=== PATIENT | female | born 1985 | race Two or more races ===

== ENCOUNTER → 2016-05-25 | Outpatient (CLI) | payer OTHER ==
[2016-05-25 09:27] LABS: MEAN CORPUSCULAR HEMOGLOBIN 30.4 pg (27.0-33.0); RED CELL DISTRIBUTION WIDTH 12.1 % (11.5-14.5); WHITE BLOOD COUNT 3.6 K/mm3 (4.0-10.0)
[2016-05-25 09:59] LABS: ALBUMIN 3.8 GM/DL (3.2-5.2); ALBUMIN/GLOBULIN RATIO 0.88 (1.00-1.93); ALKALINE PHOSPHATASE 73 U/L (45-117); ALT/SGPT 41 U/L (12-78); ANION GAP 7 MEQ/L (8-16); AST/SGOT 38 U/L (15-37); BILIRUBIN,TOTAL 0.7 MG/DL (0.2-1.0); BLOOD UREA NITROGEN 16 MG/DL (7-18); CALCIUM LEVEL 8.9 MG/DL (8.5-10.1); CARBON DIOXIDE LEVEL 29 MEQ/L (21-32); CHLORIDE LEVEL 103 MEQ/L (98-107); CHOLESTEROL LEVEL 163 MG/DL (<200); CREATININE FOR GFR 0.79 MG/DL (0.55-1.02); GLOMERULAR FILTRATION RATE > 60.0 (>60); GLUCOSE, FASTING 77 MG/DL (70-105); MAGNESIUM LEVEL 2.1 MG/DL (1.8-2.4); POTASSIUM SERUM 4.5 MEQ/L (3.5-5.1); SODIUM LEVEL 139 MEQ/L (136-145); TOTAL PROTEIN 8.1 GM/DL (6.4-8.2); TRIGLYCERIDES LEVEL 55 MG/DL (<150)
== END ==
LOC: M WUC 08:15
PROVIDERS: ATTEND Physician Assistant
DX: Z00.00 Encounter for general adult medical examination without abnormal findings (principal)

== ENCOUNTER → 2016-11-25 | Outpatient (CLI) | payer OTHER ==
[2016-11-25 14:34] LABS: BASO % 0.7 % (0.0-1.0); EOS # 0.2 K/mm3 (0.0-0.50); EOS % 5.6 % (0.0-3.0); LARGE UNSTAINED CELL # 0.1 K/mm3 (0.0-0.4); LARGE UNSTAINED CELL % 1.4 % (0.0-4.0); LYMPH # 1.3 K/mm3 (1.5-6.5); LYMPH % 27.5 % (24.0-44.0); MEAN CORPUSCULAR HEMOGLOBIN 30.6 pg (27.0-33.0); MEAN CORPUSCULAR HGB CONC 32.3 g/dl (32.0-36.5); MEAN CORPUSCULAR VOLUME 94.5 fl (80.0-96.0); MONO # 0.4 K/mm3 (0.0-0.8); MONO % 8.3 % (0.0-5.0); NEUTROPHILS # 2.5 K/mm3 (1.8-7.7); NEUTROPHILS % 56.5 % (36.0-66.0); PLATELET COUNT, AUTOMATED 264 k/mm3 (150-450); RED CELL DISTRIBUTION WIDTH 12.9 % (11.5-14.5); WHITE BLOOD COUNT 4.5 K/mm3 (4.0-10.0)
[2016-11-25 14:52] LABS: ALBUMIN 3.7 GM/DL (3.2-5.2); ALBUMIN/GLOBULIN RATIO 0.82 (1.00-1.93); ALKALINE PHOSPHATASE 63 U/L (45-117); ALT/SGPT 46 U/L (12-78); ANION GAP 7 MEQ/L (8-16); AST/SGOT 41 U/L (15-37); BILIRUBIN,TOTAL 0.9 MG/DL (0.2-1.0); BLOOD UREA NITROGEN 13 MG/DL (7-18); CARBON DIOXIDE LEVEL 27 MEQ/L (21-32); CHLORIDE LEVEL 107 MEQ/L (98-107); CHOLESTEROL LEVEL 197 MG/DL (<200); CREATININE FOR GFR 0.74 MG/DL (0.55-1.02); FREE T4 0.81 NG/DL (0.76-1.46); GLOMERULAR FILTRATION RATE > 60.0 (>60); GLUCOSE, FASTING 86 MG/DL (70-105); POTASSIUM SERUM 4.6 MEQ/L (3.5-5.1); SODIUM LEVEL 141 MEQ/L (136-145); TOTAL PROTEIN 8.2 GM/DL (6.4-8.2); TRIGLYCERIDES LEVEL 84 MG/DL (<150)
== END ==
LOC: M WUC 08:16
PROVIDERS: ATTEND Physician Assistant
DX: Z13.1 Encounter for screening for diabetes mellitus (principal); Z13.29 Encounter for screening for other suspected endocrine disorder; Z13.220 Encounter for screening for lipoid disorders

== ENCOUNTER → 2017-02-23 | Outpatient (CLI) | payer BC, OTHER ==
[2017-02-23 13:09] LABS: BASO % 0.5 % (0.0-1.0); EOS # 0.2 10^3/uL (0.0-0.50); EOS % 3.9 % (0.0-3.0); IMMATURE GRANULOCYTE % 0.2 % (0-0); LYMPH # 1.5 10^3/uL (1.5-6.5); LYMPH % 35.1 % (24.0-44.0); MEAN CORPUSCULAR HEMOGLOBIN 30.1 pg (27.0-33.0); MEAN CORPUSCULAR HGB CONC 32.7 g/dl (32.0-36.5); MEAN CORPUSCULAR VOLUME 91.9 fl (80.0-96.0); MONO # 0.4 10^3/uL (0.0-0.8); MONO % 8.9 % (0.0-5.0); NEUTROPHILS # 2.2 10^3/uL (1.8-7.7); NEUTROPHILS % 51.4 % (36.0-66.0); PLATELET COUNT, AUTOMATED 259 10^3/uL (150-450); RED CELL DISTRIBUTION WIDTH 12.7 % (11.5-14.5); WHITE BLOOD COUNT 4.4 10^3/uL (4.0-10.0)
[2017-02-23 13:31] LABS: ALBUMIN 3.5 GM/DL (3.2-5.2); ALBUMIN/GLOBULIN RATIO 0.83 (1.00-1.93); ALKALINE PHOSPHATASE 59 U/L (45-117); ALT/SGPT 34 U/L (12-78); ANION GAP 5 MEQ/L (8-16); AST/SGOT 27 U/L (7-37); BILIRUBIN,TOTAL 0.6 MG/DL (0.2-1.0); BLOOD UREA NITROGEN 11 MG/DL (7-18); CALCIUM LEVEL 9.1 MG/DL (8.5-10.1); CARBON DIOXIDE LEVEL 29 MEQ/L (21-32); CHLORIDE LEVEL 103 MEQ/L (98-107); CREATININE FOR GFR 0.69 MG/DL (0.55-1.02); FREE T4 0.91 NG/DL (0.76-1.46); GLOMERULAR FILTRATION RATE > 60.0 (>60); GLUCOSE, FASTING 86 MG/DL (70-105); POTASSIUM SERUM 4.4 MEQ/L (3.5-5.1); SODIUM LEVEL 137 MEQ/L (136-145); TOTAL PROTEIN 7.7 GM/DL (6.4-8.2)
== END ==
LOC: M WUC 10:38
PROVIDERS: ATTEND Physician Assistant
DX: L70.0 Acne vulgaris (principal); E03.9 Hypothyroidism, unspecified

== ENCOUNTER 2017-05-09 16:19 | Emergency (ER) | payer BC, OTHER ==
[2017-05-09 18:53] LABS: APPEARANCE, URINE CLEAR (CLEAR); BACTERIA, URINE AUTO NEGATIVE (NEGATIVE); BILIRUBIN, URINE AUTO NEGATIVE (NEGATIVE); BLOOD, URINE BLOOD NEGATIVE (NEGATIVE); COLOR, URINE YELLOW (YELLOW); GLUCOSE, URINE (UA) AUTO NEGATIVE (NEGATIVE); KETONE, URINE AUTO NEGATIVE (NEGATIVE); LEUKOCYTE ESTERASE, URINE AUTO NEGATIVE (NEGATIVE); NITRITE, URINE AUTO NEGATIVE (NEGATIVE); PROTEIN, URINE AUTO NEGATIVE (NEGATIVE); RBC, URINE AUTO 0 /HPF (0-3); SQUAMOUS EPITHELIAL CELL UR AU 0 /HPF (0-6); WBC, URINE AUTO 0 /HPF (0-3)
[2017-05-09 19:08] LABS: CONTROL LINE MONO RF C INT CTR LINE PRESENT; MONO REFLEX EBV COMP NEGATIVE (NEGATIVE)
[2017-05-09 19:12] LABS: AMYLASE 140 U/L (25-115); C REACTIVE PROTEIN QUANTITATIV 1.13 MG/DL (0.00-0.30); LIPASE 332 U/L (73-393)
[2017-05-09 19:26] LABS: ERYTHROCYTE SEDIMENTATION RATE 33 mm/hr (0-20)
[2017-05-11 10:47] LABS: HEPATITIS B CORE ANTIBODY IGM NEGATIVE (NEGATIVE)
[2017-05-11 10:48] LABS: HEPATITIS A ANTIBODY IGM NEGATIVE (NEGATIVE)
[2017-05-11 10:55] LABS: HEPATITIS B SURFACE ANTIGEN NEGATIVE (NEGATIVE)
[2017-05-12 00:06] LABS: EBV VIRAL CAPSID AG IgG >600.0 U/mL (0.0-17.9)
[2017-05-12 00:06] LABS: EBV VIRAL CAPSID AG IgM <36.0 U/mL (0.0-35.9)
== END 2017-05-09 21:25 | disposition home or self-care (01) ==
LOC: M ED 16:19
DX: R94.5 Abnormal results of liver function studies (principal); D18.09 Hemangioma of other sites; E03.9 Hypothyroidism, unspecified; Z79.899 Other long term (current) drug therapy
CPT/HCPCS: 76705

== ENCOUNTER → 2017-05-09 | Outpatient (REF) | payer OTHER ==
[2017-05-09 14:20] LABS: BASO % 0.8 % (0.0-1.0); EOS # 0.3 10^3/uL (0.0-0.50); EOS % 6.2 % (0.0-3.0); HEMATOCRIT 38.6 % (36.0-47.0); HEMOGLOBIN 12.7 g/dl (12.0-16.0); IMMATURE GRANULOCYTE % 0.2 % (0-0); LYMPH # 1.2 10^3/uL (1.5-6.5); LYMPH % 23.9 % (24.0-44.0); MEAN CORPUSCULAR HGB CONC 32.9 g/dl (32.0-36.5); MONO # 0.5 10^3/uL (0.0-0.8); MONO % 9.9 % (0.0-5.0); NEUTROPHILS # 2.9 10^3/uL (1.8-7.7); PLATELET COUNT, AUTOMATED 296 10^3/uL (150-450); RED BLOOD COUNT 4.24 10^6/uL (4.00-5.40); RED CELL DISTRIBUTION WIDTH 13.1 % (11.5-14.5); WHITE BLOOD COUNT 4.9 10^3/uL (4.0-10.0)
[2017-05-09 14:35] LABS: ALBUMIN 3.4 GM/DL (3.2-5.2); ALBUMIN/GLOBULIN RATIO 0.72 (1.00-1.93); ALKALINE PHOSPHATASE 114 U/L (45-117); ALT/SGPT 456 U/L (12-78); ANION GAP 7 MEQ/L (8-16); AST/SGOT 220 U/L (7-37); BILIRUBIN,TOTAL 0.7 MG/DL (0.2-1.0); BLOOD UREA NITROGEN 10 MG/DL (7-18); CALCIUM LEVEL 9.2 MG/DL (8.5-10.1); CARBON DIOXIDE LEVEL 29 MEQ/L (21-32); CHLORIDE LEVEL 103 MEQ/L (98-107); CREATININE FOR GFR 0.72 MG/DL (0.55-1.30); FREE T4 1.17 NG/DL (0.76-1.46); GLOMERULAR FILTRATION RATE > 60.0 (>60); GLUCOSE, FASTING 81 MG/DL (70-100); POTASSIUM SERUM 4.5 MEQ/L (3.5-5.1); SODIUM LEVEL 139 MEQ/L (136-145); TOTAL PROTEIN 8.1 GM/DL (6.4-8.2)
[2017-05-09 15:08] LABS: ERYTHROCYTE SEDIMENTATION RATE 32 mm/hr (0-20)
[2017-05-12 00:06] LABS: ANTINUCLEAR ANTIBODIES DIRECT Negative (Negative); Lyme Disease IgG/IgM Antibodie <0.91 ISR (0.00-0.90); Lyme Disease IgM Ab Quantitati <0.80 index (0.00-0.79)
== END ==
LOC: M SFHCSACK 10:04
DX: M25.50 Pain in unspecified joint (principal); E03.9 Hypothyroidism, unspecified
CPT/HCPCS: 84443

== ENCOUNTER → 2017-05-14 | Outpatient (REF) | payer OTHER ==
[2017-05-14 17:27] LABS: ALBUMIN 3.7 GM/DL (3.2-5.2); ALBUMIN/GLOBULIN RATIO 0.76 (1.00-1.93); ALKALINE PHOSPHATASE 100 U/L (45-117); ALT/SGPT 413 U/L (12-78); ANION GAP 7 MEQ/L (8-16); AST/SGOT 236 U/L (7-37); BILIRUBIN,TOTAL 0.4 MG/DL (0.2-1.0); BLOOD UREA NITROGEN 15 MG/DL (7-18); CALCIUM LEVEL 8.8 MG/DL (8.5-10.1); CARBON DIOXIDE LEVEL 27 MEQ/L (21-32); CHLORIDE LEVEL 103 MEQ/L (98-107); CREATININE FOR GFR 0.74 MG/DL (0.55-1.30); GLOMERULAR FILTRATION RATE > 60.0 (>60); GLUCOSE, FASTING 91 MG/DL (70-100); POTASSIUM SERUM 4.1 MEQ/L (3.5-5.1); SODIUM LEVEL 137 MEQ/L (136-145); TOTAL PROTEIN 8.6 GM/DL (6.4-8.2)
[2017-05-14 19:24] LABS: BASO % 0.5 % (0.0-1.0); EOS # 0.3 10^3/uL (0.0-0.50); EOS % 4.7 % (0.0-3.0); HEMATOCRIT 37.1 % (36.0-47.0); HEMOGLOBIN 12.4 g/dl (12.0-16.0); IMMATURE GRANULOCYTE % 0.2 % (0-3.0); LYMPH # 1.7 10^3/uL (1.5-6.5); LYMPH % 30.1 % (24.0-44.0); MEAN CORPUSCULAR HEMOGLOBIN 30.7 pg (27.0-33.0); MEAN CORPUSCULAR HGB CONC 33.4 g/dl (32.0-36.5); MEAN CORPUSCULAR VOLUME 91.8 fl (80.0-96.0); MONO # 0.6 10^3/uL (0.0-0.8); MONO % 11.1 % (0.0-5.0); NEUTROPHILS # 2.9 10^3/uL (1.8-7.7); NEUTROPHILS % 53.4 % (36.0-66.0); PLATELET COUNT, AUTOMATED 307 10^3/uL (150-450); RED BLOOD COUNT 4.04 10^6/uL (4.00-5.40); RED CELL DISTRIBUTION WIDTH 12.9 % (11.5-14.5); WHITE BLOOD COUNT 5.5 10^3/uL (4.0-10.0)
== END ==
LOC: M SFHCSACK 15:13
DX: R79.89 Other specified abnormal findings of blood chemistry (principal); L70.0 Acne vulgaris

== ENCOUNTER → 2017-10-17 | Outpatient (CLI) | payer BC, OTHER ==
[2017-10-17 08:41] LABS: PROGESTERONE < 0.2 NG/ML
== END ==
LOC: M LAB 06:40
DX: N97.9 Female infertility, unspecified (principal)
CPT/HCPCS: 84144

== ENCOUNTER → 2017-10-30 | Outpatient (CLI) | payer BC, OTHER ==
[2017-10-30 09:09] LABS: PROGESTERONE 35.3 NG/ML
[2017-10-30 09:10] LABS: ESTRADIOL 168.3 PG/ML
== END ==
LOC: M LAB 06:11
DX: E28.9 Ovarian dysfunction, unspecified (principal)
CPT/HCPCS: 84443

== ENCOUNTER → 2017-11-06 | Outpatient (CLI) | payer BC, OTHER ==
[2017-11-06 07:26] LABS: HCG, SERUM QUANTITATIVE 3 MIU/ML
[2017-11-06 10:43] LABS: PROGESTERONE 3.2 NG/ML
== END ==
LOC: M LAB 06:08
DX: Z32.00 Encounter for pregnancy test, result unknown (principal)
CPT/HCPCS: 84702

== ENCOUNTER → 2017-12-07 | Outpatient (CLI) | payer BC, OTHER ==
[2017-12-07 10:30] LABS: ESTRADIOL 2461.9 PG/ML
[2017-12-07 11:02] LABS: PROGESTERONE 70.5 NG/ML
== END ==
LOC: M LAB 06:12
DX: E28.9 Ovarian dysfunction, unspecified (principal)
CPT/HCPCS: 84443

== ENCOUNTER → 2017-12-14 | Outpatient (CLI) | payer BC, OTHER ==
[2017-12-14 07:26] LABS: HCG, SERUM QUANTITATIVE < 1.0 MIU/ML
[2017-12-14 10:34] LABS: PROGESTERONE 56.2 NG/ML
== END ==
LOC: M LAB 06:30
DX: E28.9 Ovarian dysfunction, unspecified (principal)
CPT/HCPCS: 84702

== ENCOUNTER → 2018-01-07 | Outpatient (CLI) | payer BC, OTHER ==
[2018-01-07 11:36] LABS: PROGESTERONE 49.5 NG/ML
[2018-01-07 11:36] LABS: ESTRADIOL 273.9 PG/ML
== END ==
LOC: M WUC 09:22
DX: E28.9 Ovarian dysfunction, unspecified (principal)
CPT/HCPCS: 84443

== ENCOUNTER → 2018-01-14 | Outpatient (CLI) | payer BC, OTHER ==
[2018-01-14 07:06] LABS: HCG, SERUM QUANTITATIVE < 1.0 MIU/ML
== END ==
LOC: M LAB 06:08
DX: E28.9 Ovarian dysfunction, unspecified (principal)
CPT/HCPCS: 84702

== ENCOUNTER → 2018-02-04 | Outpatient (CLI) | payer BC, OTHER ==
[2018-02-04 10:10] LABS: ESTRADIOL 261.4 PG/ML
[2018-02-04 10:46] LABS: PROGESTERONE 59.4 NG/ML
== END ==
LOC: M LAB 06:18
DX: E28.9 Ovarian dysfunction, unspecified (principal)
CPT/HCPCS: 84443

== ENCOUNTER → 2018-02-11 | Outpatient (CLI) | payer BC, OTHER ==
[2018-02-11 10:56] LABS: HCG, SERUM QUANTITATIVE 108 MIU/ML
[2018-02-11 10:56] LABS: PROGESTERONE 59.75 NG/ML
== END ==
LOC: M LAB 09:17
DX: E28.9 Ovarian dysfunction, unspecified (principal)
CPT/HCPCS: 84702

== ENCOUNTER → 2018-02-13 | Outpatient (CLI) | payer BC, OTHER ==
[2018-02-13 07:30] LABS: HCG, SERUM QUANTITATIVE 252 MIU/ML
[2018-02-13 09:31] LABS: ESTRADIOL 453.6 PG/ML
[2018-02-13 12:32] LABS: PROGESTERONE 54.03 NG/ML
== END ==
LOC: M LAB 06:26
DX: O09.00 Supervision of pregnancy with history of infertility, unspecified trimester (principal); Z3A.00 Weeks of gestation of pregnancy not specified
CPT/HCPCS: 84443

== ENCOUNTER 2018-03-15 10:23 | Emergency (ER) | payer BC, OTHER ==
[2018-03-15] MEDS: MORPHINE 2 MG/ML 1ML SYRINGE (J2270) IV (11:34)
[2018-03-15 11:48] LABS: BASO % 0.4 % (0.0-1.0); EOS # 0.1 10^3/uL (0.0-0.50); EOS % 0.7 % (0.0-3.0); HEMATOCRIT 37.1 % (36.0-47.0); HEMOGLOBIN 12.2 g/dl (12.0-15.5); IMMATURE GRANULOCYTE % 0.6 % (0-3.0); LYMPH # 1.5 10^3/uL (1.5-4.5); MEAN CORPUSCULAR HEMOGLOBIN 30.5 pg (27.0-33.0); MEAN CORPUSCULAR HGB CONC 32.9 g/dl (32.0-36.5); MEAN CORPUSCULAR VOLUME 92.8 fl (80.0-96.0); MONO # 0.4 10^3/uL (0.0-0.8); MONO % 5.2 % (0.0-5.0); NEUTROPHILS # 6.5 10^3/uL (1.8-7.7); NEUTROPHILS % 76.1 % (36.0-66.0); PLATELET COUNT, AUTOMATED 249 10^3/uL (150-450); RED CELL DISTRIBUTION WIDTH 12.1 % (11.5-14.5); WHITE BLOOD COUNT 8.5 10^3/uL (4.0-10.0)
[2018-03-15] MEDS: GASTROGRAFIN SOLUTION 30ML PO ×2 (12:05→12:35)
[2018-03-15] MEDS ORDERED: ONDANSETRON 4MG/2ML VIAL (J2405) IV (12:15)
[2018-03-15] MEDS: ONDANSETRON 4MG/2ML VIAL (J2405) IV (12:27)
[2018-03-15] MEDS: MORPHINE 4 MG/ML 1ML VIAL/SYRINGE (J2270) IV (12:28)
[2018-03-15 12:57] LABS: HCG, SERUM QUANTITATIVE 7635 MIU/ML
[2018-03-15 13:21] LABS: ALBUMIN 3.3 GM/DL (3.2-5.2); ALKALINE PHOSPHATASE 43 U/L (45-117); ALT/SGPT 21 U/L (12-78); ANION GAP 6 MEQ/L (8-16); AST/SGOT 17 U/L (7-37); BILIRUBIN,DIRECT 0.1 MG/DL (0.0-0.2); BILIRUBIN,TOTAL 0.5 MG/DL (0.2-1.0); BLOOD UREA NITROGEN 8 MG/DL (7-18); CALCIUM LEVEL 8.6 MG/DL (8.5-10.1); CARBON DIOXIDE LEVEL 27 MEQ/L (21-32); CHLORIDE LEVEL 106 MEQ/L (98-107); CREATININE FOR GFR 0.74 MG/DL (0.55-1.30); GLOMERULAR FILTRATION RATE > 60.0 (>60); GLUCOSE, FASTING 100 MG/DL (70-100); HCG, SERUM QUANTITATIVE 7917 MIU/ML; LIPASE 217 U/L (73-393); POTASSIUM SERUM 3.5 MEQ/L (3.5-5.1); SODIUM LEVEL 139 MEQ/L (136-145); TOTAL PROTEIN 6.6 GM/DL (6.4-8.2)
[2018-03-15] MEDS ORDERED: ISOVUE-370 76% 100ML VIAL (Q9967) As Ordered (14:29)
[2018-03-15] MEDS: KETOROLAC 30 MG/ML VIAL (J1885) IV (16:25)
== END 2018-03-15 16:49 | disposition home or self-care (01) ==
LOC: M ED 10:23
DX: R10.9 Unspecified abdominal pain (principal); G89.18 Other acute postprocedural pain; E03.9 Hypothyroidism, unspecified; Z79.890 Hormone replacement therapy
CPT/HCPCS: J2270

== ENCOUNTER → 2018-04-18 | Outpatient (CLI) | payer BC, OTHER ==
[~2018-04-18] MED LIST: HYDR-3713 PO; IBUP-1114 PO; LEVO25TA5; MELO7.5T7; NALT50TA4 PO; NORCOTAB PO; PRED10TA2; PRENTAB55 PO; SPIR50TA4; TRAM50TA2; [UNRECOGNIZED DRUG - CODE]
== END ==
LOC: M LAB 16:02
PROVIDERS: ATTEND Obstetrics & Gynecology Reproductive Endocrinology
DX: O02.1 Missed abortion (principal)

== ENCOUNTER → 2018-05-27 | Outpatient (CLI) | payer BC, OTHER ==
[2018-05-27 09:32] LABS: THYROID STIMULATING HORMONE 1.16 uIU/ML (0.358-3.740)
[2018-05-27 11:26] LABS: ESTRADIOL 1795.1 PG/ML
[2018-05-27 12:14] LABS: PROGESTERONE 79.21 NG/ML
== END ==
LOC: M LAB 08:35
PROVIDERS: ATTEND Obstetrics & Gynecology Reproductive Endocrinology
DX: E28.9 Ovarian dysfunction, unspecified (principal)

== ENCOUNTER → 2018-05-31 | Outpatient (CLI) | payer BC, OTHER ==
[2018-05-31 11:07] LABS: PROGESTERONE 129.23 NG/ML
== END ==
LOC: M LAB 06:22
PROVIDERS: ATTEND Obstetrics & Gynecology Reproductive Endocrinology
DX: E28.9 Ovarian dysfunction, unspecified (principal)

== ENCOUNTER → 2018-06-03 | Outpatient (CLI) | payer BC, OTHER ==
[2018-06-03 07:12] LABS: THYROID STIMULATING HORMONE 3.02 uIU/ML (0.358-3.740)
[2018-06-03 10:52] LABS: ESTRADIOL 1265.1 PG/ML
[2018-06-03 11:40] LABS: PROGESTERONE 137.5 NG/ML
== END ==
LOC: M LAB 06:14
PROVIDERS: ATTEND Obstetrics & Gynecology Reproductive Endocrinology
DX: E28.9 Ovarian dysfunction, unspecified (principal)

== ENCOUNTER → 2018-08-14 | Outpatient (CLI) | payer BC, OTHER ==
[~2018-08-14] MED LIST changes: +HYDR-3715 PO; -NORCOTAB PO
[2018-08-14 16:42] LABS: BASO % 0.4 % (0.0-1.0); EOS # 0.1 10^3/uL (0.0-0.50); EOS % 1.4 % (0.0-3.0); HEMATOCRIT 34.3 % (36.0-47.0); HEMOGLOBIN 11.4 g/dl (12.0-15.5); LYMPH # 1.6 10^3/uL (1.5-4.5); LYMPH % 19.4 % (24.0-44.0); MEAN CORPUSCULAR HEMOGLOBIN 30.6 pg (27.0-33.0); MEAN CORPUSCULAR HGB CONC 33.2 g/dl (32.0-36.5); MEAN CORPUSCULAR VOLUME 92.2 fl (80.0-96.0); MONO # 0.6 10^3/uL (0.0-0.8); MONO % 7.1 % (0.0-5.0); NEUTROPHILS # 5.9 10^3/uL (1.8-7.7); NEUTROPHILS % 71.5 % (36.0-66.0); PLATELET COUNT, AUTOMATED 251 10^3/uL (150-450); RED BLOOD COUNT 3.72 10^6/uL (4.00-5.40); WHITE BLOOD COUNT 8.3 10^3/uL (4.0-10.0)
[2018-08-14 17:19] LABS: FREE T4 1.04 NG/DL (0.76-1.46); THYROID STIMULATING HORMONE 0.847 uIU/ML (0.358-3.740)
[2018-08-14 17:32] LABS: RUBELLA IgG QUALITATIVE IMMUNE (IMMUNE)
[2018-08-14 18:01] LABS: HIV 1&2 SCREEN CENTAUR NEGATIVE (NEGATIVE)
[2018-08-14 18:07] LABS: CHLAMYDIA DNA AMPLIFICATION NEGATIVE (NEGATIVE); GC DNA AMPLIFICATION NEGATIVE (NEGATIVE)
== END ==
LOC: M WUC 15:18
PROVIDERS: ATTEND Advanced Practice Midwife
DX: Z36.89 Encounter for other specified antenatal screening (principal)

== ENCOUNTER → 2018-09-02 | Outpatient (REF) | payer OTHER | LOC: M LAB REF 16:44 | PROVIDERS: ATTEND Specialist | DX: Z34.00 Encounter for supervision of normal first pregnancy, unspecified trimester (principal) ==

== ENCOUNTER → 2018-09-16 | Outpatient (CLI) | payer BC, OTHER ==
--- NOTE | 2018-09-16 18:35 | REP ---
Obstetric ultrasonography for anatomy: There is a single intrauterine gestation in a vertex presentation. There is movement and cardiac activity. The heart rate is 167 beats per minute. The placenta is anterior. There is no previa or abruptio. The placenta demonstrates grade zero maturity. The amniotic fluid volume subjectively is normal. The cervix measures 3.5 cm length. Gestational age by today's ultrasound is 20 weeks 0 days/PAVEL 02/03/2019. Gestational age by LMP is 19 weeks 3 days/PAVEL 02/07/2019. weight is 345 grams/0 pounds, 12 ounces. This is the 81st percentile for 19 weeks 3 days. The following anatomic structures are identified and are unremarkable: Choroid plexus, intracranial lateral ventricles, cerebellum, face, upper lip, lungs, cardiac right and left ventricular outflow tracts, diaphragm, stomach, cord insertion, three-vessel cord, kidneys, bladder, spine and upper lower extremities. Suboptimally demonstrated because of position is the facial profile and the four-chamber view of the heart. A followup study dedicated to these structures might be considered. Otherwise, there are no anomalies. Electronically Signed by Lance Ponce MD 09/16/2018 06:26 P
== END ==
LOC: M RAD 16:09
PROVIDERS: ATTEND Advanced Practice Midwife
DX: Z34.82 Encounter for supervision of other normal pregnancy, second trimester (principal); Z3A.20 20 weeks gestation of pregnancy

== ENCOUNTER → 2018-10-18 | Outpatient (CLI) | payer BC, OTHER ==
--- NOTE | 2018-10-18 16:50 | REP ---
OB ULTRASOUND: Real-time sonographic evaluation of the gravid uterus is performed. There is a single living intrauterine gestation. Estimated gestational age 24 weeks 0 days. EDC 02/07/2019. Today's measurements indicate appropriate growth. BPD 61 mm 24 weeks 4 days, 63rd percentile HC 221 mm 24 weeks 1 day, 53rd percentile AC 192 mm 24 weeks 0 days, 49th percentile Femur length 44 mm 24 weeks 4 days, 63rd percentile. HC/AC ratio 1.5 within normal range. Estimated weight 677 grams 52nd percentile. Cervix is closed and measures 3.9 cm in length. heart rate 139 beats per minute. SEEN/GROSSLY UNREMARKABLE Lateral ventricles Yes Posterior fossa Yes Upper lip Yes Four-chamber heart Yes LVOT Yes RVOT Yes Stomach Yes Cord insertion Yes Three vessel cord Yes Kidneys Yes Bladder Yes Spine Yes position: Vertex. Placenta: Anterior and grade 0 with no previa or abruption. Amniotic fluid within normal limits. Electronically Signed by Lance Davis MD 10/20/2018 07:30 P
== END ==
LOC: M RAD 15:33
PROVIDERS: ATTEND Advanced Practice Midwife
DX: O09.812 Supervision of pregnancy resulting from assisted reproductive technology, second trimester (principal)

== ENCOUNTER → 2018-10-23 | Outpatient (CLI) | payer OTHER, BC ==
[2018-10-23 16:59] LABS: FREE T4 0.89 NG/DL (0.76-1.46); THYROID STIMULATING HORMONE 1.05 uIU/ML (0.358-3.740)
== END ==
LOC: M WUC 13:32
PROVIDERS: ATTEND Advanced Practice Midwife
DX: O99.282 Endocrine, nutritional and metabolic diseases complicating pregnancy, second trimester (principal); Z3A.00 Weeks of gestation of pregnancy not specified

== ENCOUNTER → 2018-11-09 | Outpatient (CLI) | payer OTHER, BC ==
[~2018-11-09] MED LIST changes: +ACET-683 PO; +IBUP80TA PO; +LEVO50TA5 PO
[2018-11-09 11:30] LABS: HEMATOCRIT 34.5 % (36.0-47.0); HEMOGLOBIN 11.3 g/dl (12.0-15.5); MEAN CORPUSCULAR HEMOGLOBIN 30.9 pg (27.0-33.0); MEAN CORPUSCULAR HGB CONC 32.8 g/dl (32.0-36.5); MEAN CORPUSCULAR VOLUME 94.3 fl (80.0-96.0); PLATELET COUNT, AUTOMATED 209 10^3/uL (150-450); RED BLOOD COUNT 3.66 10^6/uL (4.00-5.40); WHITE BLOOD COUNT 8.5 10^3/uL (4.0-10.0)
== END ==
LOC: M WUC 09:26
PROVIDERS: ATTEND Advanced Practice Midwife
DX: O99.282 Endocrine, nutritional and metabolic diseases complicating pregnancy, second trimester (principal)

== ENCOUNTER → 2018-12-20 | Outpatient (CLI) | payer OTHER, BC ==
[~2018-12-20] MED LIST changes: -ACET-683 PO; -IBUP80TA PO; -LEVO50TA5 PO
[2018-12-20 20:31] LABS: FREE T4 0.89 NG/DL (0.76-1.46); THYROID STIMULATING HORMONE 1.46 uIU/ML (0.358-3.740)
== END ==
LOC: M WUC 15:46
PROVIDERS: ATTEND Specialist
DX: Z23 Encounter for immunization (principal)

== ENCOUNTER → 2019-01-16 | Outpatient (REF) | payer BC, OTHER | LOC: M LAB REF 09:54 | PROVIDERS: ATTEND Advanced Practice Midwife | DX: O99.283 Endocrine, nutritional and metabolic diseases complicating pregnancy, third trimester (principal) ==

== ENCOUNTER → 2019-01-22 | Outpatient (CLI) | payer BC, OTHER | LOC: M WUC 15:05 | PROVIDERS: ATTEND Advanced Practice Midwife | DX: O99.283 Endocrine, nutritional and metabolic diseases complicating pregnancy, third trimester (principal) ==

== ENCOUNTER 2019-02-09 18:07 | Inpatient (IN) | payer BC, OTHER ==
[~2019-02-09] VITALS: Ht 162.6 cm; Wt 92.4 kg
[2019-02-09 18:22] VITALS: BP 129/75
[2019-02-09 18:51] VITALS: BP 122/67
[2019-02-09] MEDS ORDERED: LACTATED RINGER'S 1000 ML IV STA (19:21)
[2019-02-09] MEDS ORDERED: BUTORPHANOL 2 MG/ML INJ (J0595) IV ONE (19:30)
[2019-02-09] MEDS ORDERED: PROMETHAZINE INJ 25 MG/ML VIAL (J2550) IV ONE (19:30)
[2019-02-09] MEDS ORDERED: miSOPROStol 50 MCG 1/2 TAB (S0191) As Ordered ONE (19:32)
[2019-02-09 19:33] LABS: HEMATOCRIT 34.6 % (36.0-47.0); HEMOGLOBIN 11.5 g/dl (12.0-15.5); MEAN CORPUSCULAR HEMOGLOBIN 31.3 pg (27.0-33.0); MEAN CORPUSCULAR HGB CONC 33.2 g/dl (32.0-36.5); MEAN CORPUSCULAR VOLUME 94.3 fl (80.0-96.0); PLATELET COUNT, AUTOMATED 141 10^3/uL (150-450); RED BLOOD COUNT 3.67 10^6/uL (4.00-5.40); WHITE BLOOD COUNT 8.1 10^3/uL (4.0-10.0)
[2019-02-09] MEDS: miSOPROStol 50 MCG 1/2 TAB (S0191) PO SCH (19:35)
--- NOTE | 2019-02-09 19:47 | HPEPDOC ---
Obstetrical History & Physical General Date of Admission Feb 09, 2019 at 18:07 Primary Care Physician: JORDEN FLORENTINO CNM History of Present Illness Patient is a 33-year-old female who is a at 40.2 weeks gestation with an PAVEL of 02/07/19 based off of IVF dating. She initiated care in her first trimester with [facility] after being cared for at [facility]. Her has been complicated by hypothyroidism and carpal tunnel related to . She presents to labor and delivery for induction of labor. She denies leaking of fluid, contractions or vaginal bleeding. She reports active movement. Chief Complaint: Induction of labor Information Provided By: Patient Age: 33 : 2 Term: 0 Pre-term: 0 Abortions: 1 Livin Care Care: Good Care Dating Final EDC: Feb 07, 2019 EGA at Admission: 40.2 Antepartum Course Diagnos(e)s Hypothyroidism Height (inches): 64 Pre- weight (lbs.): 170 Admission Weight (lbs.): 204 Change in Weight (lbs.): 34 Past Medical History [employer] History: Spontaneous (March 2018), Human papillomavirus(HPV) Past Medical History Medical History Hypothyroidism Surgical History: Appendectomy, Diagnostic laparoscopy, Dilatation and Curettage, Other (IVF, LEEP) Family History Significant Family History: Cancer Social History Marital Status: Family situation: Spouse/partner home Psychosocial History: No pertinent psych hx * Smoker: non-smoker Alcohol: Denies Drugs: denies Abuse Violence Screening Have you been hit/kicked/slapp: No Have you been sexually assault: No Allergies Coded Allergies: No Known Allergies (Unverified , 05/09/17) Medications Scheduled Ibuprofen (Ibuprofen) 400 Mg Tab, 1 TAB PO TID for fever Levothyroxine Sodium (Levothyroxine Sodium) 25 Mcg Tab, DAILY Naltrexone HCl (Naltrexone HCl) 50 Mg Tab, 4.5 MG PO DAILY Fls269/Iron Fum/Folic/Docusate ( 19 Tablet) 1 Tab Tab, 1 TAB PO DAILY Scheduled PRN Hydrocodone/Acetaminophen (Hydrocodone-Acetamin 5-325 mg) 1 Tab Tab, 1 TAB PO Q6H PRN for PAIN Miscellaneous Medications Prednisone (Prednisone) 10 Mg Tab Tramadol HCl (Tramadol HCl) 50 Mg Tab Physical Examination Physical Examination GENERAL: Alert and oriented times three. BREAST: . ABDOMEN: Gravid and non-tender to touch. FETUS: Is vertex (VTX) by sterile vaginal examination (SVE), fetus is vertex (VTX) by Norm. HEART RATE: Regular rate and rhythm. LUNGS: Clear to auscultation (CTA). EXTREMITIES: No edema. No clonus. Deep tendon reflexes (DTRs) + 2. Vital Signs/I&O Vital Signs Date Time Temp Pulse Resp B/P (MAP) Pulse Ox O2 Delivery O2 Flow Rate FiO2 02/09/19 18:51 84 18 122/67 (85) 02/09/19 18:22 97.9 Laboratory Data 24H LABS Laboratory Tests 2 02/09/19 18:22: Serology Scanned Report Hepatitis B Testing Urine Culture: No Growth Pertinent Laboratoy Data Blood Type: O+ RBC Antibody Screen: Negative HIV: Negative Hepatitis B: Negative Hepatitis C: Negative Rapid Plasma Reagin: Nonreactive Rubella: Immune Chlamydia/Gonorrhea: Negative Group B Streptococcus: Negative Glucose Tolerance Test: 76 Vaginal Examination Dilation: 1cm Effacement: 90% Station: -2 Cervical Consistency: Soft Cervical Position: Anterior Presentation: Cephalic presentation Position: Vertex (occiput) Assessment Heart Rate (FHR): 150 Variability: Moderate Accelerations: Positive Decelerations: None Tocometer Contractions: Yes Frequency: irregular Assessment/Plan Assessment IUP at 40.2 weeks Category I FHR tracing GBS negative hypothyroidism elective IOL Plan Admit and orient. OOB ad mauro. Diet: regular then switch to clears when patient is started on IV Pitocin. Group B Streptococcus (GBS) negative. Labs and intravenous (IV) per unit protocol. Counseled on Cytotec and IV Pitocin for induction of labor (IOL). Anesthesia consult per patient's request. Lactated Ringers (LR): Bolus 800 mL prior to epidural. Anticipate cervical ripening. C-S as appropriate. JORDEN FLORENTINO CNM Feb 09, 2019 19:47
[2019-02-09] MEDS ORDERED: LEVO50TA5 PO (19:58)
[2019-02-10] VITALS (63 sets, daily range): BP systolic 99–137; BP diastolic 51–84
[2019-02-10] MEDS: miSOPROStol 50 MCG 1/2 TAB (S0191) PO SCH
[2019-02-10] MEDS ORDERED: FENTANYL 2MCG/ML ROPIVACAINE 0.2% IN 0.9% NACL 100ML IVBAG As Ordered ONE (04:05)
[2019-02-10] MEDS ORDERED: FENTANYL/ROPIVACAINE/NACL BAG 100 ML EPIDURAL SCH (06:00)
[2019-02-10] MEDS ORDERED: diphenhydrAMINE INJ 50MG/ML VIAL (J1200) IV PRN (06:00)
[2019-02-10] MEDS ORDERED: EPIDURAL COMMENT XX SCH (06:00)
[2019-02-10] MEDS ORDERED: REFRIGERATOR IV KEYS XX PRN (06:00)
[2019-02-10] MEDS ORDERED: NALOXONE INJ 0.4 MG/1 ML VIAL (J2310) IV PRN (06:00)
[2019-02-10] MEDS ORDERED: EPIDURAL/PCA KEYS XX PRN (06:00)
[2019-02-10] MEDS ORDERED: ONDANSETRON 4MG/2ML VIAL (J2405) IV PRN (06:00)
[2019-02-10] MEDS: ePHEDrine SULFATE 25 MG/5 ML(5MG/ML) SYRINGE IV PRN ×3 (07:18→08:25)
[2019-02-10] MEDS: LACTATED RINGER'S 1000 ML IV PRN ×2 (07:26→08:27)
[2019-02-10] MEDS: LEVOTHYROXINE 50MCG TABLET (0.05MG) PO SCH (07:43)
--- NOTE | 2019-02-10 07:51 | IPNPDOC ---
Obstetrical Progress Note Date of Service Feb 10, 2019 Subjective Patient reports she is comfortable with her epidural. Objective Vital Signs Date Time Temp Pulse Resp B/P (MAP) Pulse Ox O2 Delivery O2 Flow Rate FiO2 02/10/19 06:29 59 107/56 (73) 02/10/19 00:11 18 02/09/19 18:22 97.9 Assessment Heart Rate (FHR): 120 Variability: Moderate Accelerations: Positive Heart Rate Tracing: Category I Tocometer Contractions: Yes Frequency: regular, every 2-5 min. Sterile Vaginal Examination Postion/Presentation: Cephalic presentation Assessment and Plan Age: 33 : 2 Term: 0 Pre-term: 0 Abortions: 1 Livin EGA at Admission: 40.2 Weeks & Days 40.3 Status: Reassuring Group B Streptococcus: Negative Anticipate: Vaginal Delivery Additional Comments IV Pitocin ordered and to be started. JORDEN FLORENTINO CNM Feb 10, 2019 07:51
[2019-02-10] MEDS ORDERED: OXYTOCIN DRIP 30 UNITS in IV 1 EA IV SCH ×2 (08:00→17:15)
[2019-02-10] MEDS ORDERED: LR 1,000 ML IV SCH (09:00)
--- NOTE | 2019-02-10 10:30 | IPNPDOC ---
Obstetrical Progress Note Date of Service Feb 10, 2019 Subjective Patient is comfortable with her epidural. Reports she is feeling better since her epidural rate has been decreased. Objective Vital Signs Date Time Temp Pulse Resp B/P (MAP) Pulse Ox O2 Delivery O2 Flow Rate FiO2 02/10/19 09:54 99.2 56 16 121/59 (79) Assessment Heart Rate (FHR): 150 Variability: Minimal to moderate Accelerations: Positive Decelerations: Early, Late Heart Rate Tracing: Category II Tocometer Contractions: Yes Frequency: regular Sterile Vaginal Examination Dilation: 7 cm Effacement (%): 100% Station: -1, 0 Cervical Position: Anterior Postion/Presentation: Cephalic presentation Assessment and Plan Age: 33 : 2 Term: 0 Pre-term: 0 Abortions: 1 Livin EGA at Admission: 40.2 Weeks & Days 40.3 weeks today Status: Reassuring Group B Streptococcus: Negative Anticipate: Vaginal Delivery Additional Comments IV Pitocin is at 4 mu/min. AROM to a moderate amount of meconium. Will continue to monitor strip. Periods of minimal to moderate with occasional decelerations. JORDEN FLORENTINO CNM Feb 10, 2019 10:30
--- NOTE | 2019-02-10 12:09 | IPNPDOC ---
Obstetrical Progress Note Date of Service Feb 10, 2019 Subjective Comfortable with epidural but was feeling more on right side and was repositioned. Objective Vital Signs Date Time Temp Pulse Resp B/P (MAP) Pulse Ox O2 Delivery O2 Flow Rate FiO2 02/10/19 10:25 63 18 119/59 (79) 02/10/19 09:54 99.2 Assessment Heart Rate (FHR): 150 Variability: Moderate Accelerations: Positive Decelerations: None Heart Rate Tracing: Category I Tocometer Contractions: Yes Frequency: regular Assessment and Plan EGA at Admission: 40.2 Weeks & Days 40.3 Status: Reassuring Anticipate: Vaginal Delivery Additional Comments IV Pitocin is at 2 mu/min. JORDEN FLORENTINO CNM Feb 10, 2019 12:09
[2019-02-10] MEDS ORDERED: ePHEDrine SULFATE 25 MG/5 ML(5MG/ML) SYRINGE IV PRN ×2 (13:00→15:00)
[2019-02-10] MEDS ORDERED: LACTATED RINGER'S 1000 ML IV PRN (13:00)
[2019-02-10 16:06] LABS: CORD GAS ABE V -8.5; CORD GAS HCO3 V 19.2 MEQ/L; CORD GAS O2 SAT V 41.4 %; CORD GAS PCO2 V 47.9 mmHg; CORD GAS PH V 7.221 UNITS; CORD GAS PO2 V 21.9 mmHg; CORD GAS SBC V 16.6 MEQ/L; CORD GAS TCO2 V 20.7 MEQ/L
[2019-02-10 16:08] LABS: CORD GAS HCO3 A 19.6 MEQ/L; CORD GAS O2 SAT A 24.7 %; CORD GAS PCO2 A 58.7 mmHg; CORD GAS PH A 7.141 UNITS; CORD GAS PO2 A 17.4 mmHg; CORD GAS SBC A 15.2 MEQ/L; CORD GAS TCO2 A 21.4 MEQ/L
[2019-02-10] MEDS ORDERED: IBUPROFEN 800 MG TAB As Ordered ONE (16:12)
[2019-02-10] MEDS: IBUPROFEN 800 MG TAB PO PRN (16:14)
[2019-02-10] MEDS ORDERED: RHOGAM 300 MCG (1500 IU) INJ (J2790) IM SCH (17:15)
[2019-02-10] MEDS ORDERED: METHYLERGONOVINE MALEATE 0.2 MG TAB PO PRN (17:15)
[2019-02-10] MEDS ORDERED: DIBUCAINE 1% OINTMENT 30GM TOP PRN (17:15)
[2019-02-10] MEDS ORDERED: LIDOCAINE 1% MDV 20ML VIAL INFIL ONE (17:15)
[2019-02-10] MEDS ORDERED: MEASLES,MUMPS,RUBELLA VACCINE INJ (MMR-II) (90707) SC SCH (17:15)
[2019-02-10] MEDS ORDERED: ANUSOL HC CREAM 30GM TOP PRN (17:15)
[2019-02-10] MEDS ORDERED: IBUPROFEN 600 MG TAB PO PRN (17:15)
[2019-02-10] MEDS ORDERED: ACETAMINOPHEN TAB 650MG DOSE (2X325MG) PO PRN (17:15)
[2019-02-10] MEDS ORDERED: ACETAMINOPHEN 500 MG TAB PO PRN (17:15)
--- NOTE | 2019-02-10 17:54 | DNPDOC ---
[facility] Delivery Note Delivery Note DATE OF DELIVERY: 02/10/2019 at 1453 PREDELIVERY DIAGNOSIS: 40-3/7 weeks' gestation and labor. POST DELIVERY DIAGNOSIS: Delivered. PROCEDURE: Spontaneous vaginal delivery. PRIMER CHARGING TOOL SETTER: Jorden Figueredo CNM, BROOKE ANESTHESIA: epidural. ESTIMATED BLOOD LOSS: 450 mL. FINDINGS: 7 pounds 5 ounces; 3320 grams; male , Score 7/9, multiple late deceleration, multiple variable decelerations, meconium. DELIVERY SUMMARY: Patient is a 33-year-old female who is now a at 40.3 weeks gestation. She presented to L&D for and IOL-elective. the patient received 2 doses of cytotec and IV Pitocin for her IOL. She received an epidural for pain management. Neonatology was notified and Dr. Saunders was present for the delivery. The patient progressed to fully dilated at 1453 and pushed to a living male in the JAREK position with restitution to ROT. The anterior shoulder delivered with ease and the corpus immediately followed. The cord was clamped and cut by the patient's . The baby was brought over to the warming table to be evaluated by Dr. Saunders. The placenta delivered spontaneously and intact. Uterine hemostasis was achieved via rapid infusion of IV Pitocin and fundal massage. The perineum, cervix, and vagina was inspected. Dr. Khan was called in to help with repair. Bilateral sulcus tears noted with 2nd degree perineal laceration that was repaired with a 3.0 Vicryl Rapide and a 2.0 chromic gut. Mom plans to breastfeed and breastfed well while in L&D. They are naming their son Edward. both mom and baby are in stable condition. JORDEN FIGUEREDO CNM Feb 10, 2019 17:54
[2019-02-10] MEDS: PERCOCET 5MG/325MG TAB PO PRN ×2 (19:40→23:38)
[2019-02-10] MEDS: DOCUSATE SODIUM 100 MG CAP PO PRN (23:37)
[2019-02-11] MEDS: IBUPROFEN 800 MG TAB PO PRN ×3 (00:07→16:23)
[2019-02-11] MEDS: PERCOCET 5MG/325MG TAB PO PRN ×4 (04:22→22:08)
[2019-02-11 05:50] VITALS: BP 100/51
[2019-02-11] MEDS: LEVOTHYROXINE 50MCG TABLET (0.05MG) PO SCH (06:17)
--- NOTE | 2019-02-11 07:48 | IPNPDOC ---
Progress Note Date of Service: Feb 11, 2019 Day#: 1 Progress Note SUBJECT: She has been ambulating, voiding spontaneously without issue and kirsten erating regular diet. Breast feeding without issue. Complaining of carpal tunnel pain bilaterally. OBJECTIVE: VITAL SIGNS: Within normal limits, afebrile. Alert and oriented times three. Breath sounds clear to auscultation. Heart rate: Regular rate and rhythm, no murmurs, rubs or gallops. Abdomen: Fundus firm at U-1. Soft, NTTP. Moderate lochia. ASSESSMENT: Day 1 PLAN: 1. Continue with supportive nursing care and breast feeding support. 2. Anticipate discharge to home tomorrow. VS, I&O, 24H, Fishbone Vital Signs/I&O Vital Signs Date Time Temp Pulse Resp B/P (MAP) Pulse Ox O2 Delivery O2 Flow Rate FiO2 02/11/19 05:50 98.3 56 17 100/51 (67) I&O- Last 24 Hours up to 6 AM 02/11/19 05:59 Intake Total 2600 ml Output Total 1700 ml Balance 900 ml Laboratory Data 24H LABS Laboratory Tests 2 02/10/19 15:52: Cord Arterial Blood pH 7.141, Cord Arterial Blood PCO2 58.7, Cord Arterial Blood PO2 17.4, Cord Arterial Blood HCO3 19.6, Cord Arterial Blood Total CO2 21.4, Cor d Arterial Blood Base Excess -10.0, Cord Arterial Base Excess (Standard 15.2, Cord Arterial Bld Oxygen Saturation 24.7, Cord Venous Blood pH 7.221, Cord Venous Blood PCO2 47.9, Cord Venous Blood PO2 21.9, Cord Venous Blood HCO3 19.2, Cord Venous Blood Total CO2 20.7, Cord Venous Base Excess (Actual) -8.5, Cord Venous Base Excess (Standard) 16.6, Cord Venous Blood Oxygen Saturation 41.4 JORDEN FLORENTINO CNM Feb 11, 2019 07:48
[2019-02-11] MEDS: PRENATAL VITAMINS CHEWABLE TABLET PO SCH (08:25)
[2019-02-11 16:53] VITALS: BP 111/55
[2019-02-11 18:14] VITALS: BP 115/67
[2019-02-11] MEDS: DOCUSATE SODIUM 100 MG CAP PO PRN (21:34)
[2019-02-12] MEDS: IBUPROFEN 800 MG TAB PO PRN (01:42)
[2019-02-12] MEDS: LEVOTHYROXINE 50MCG TABLET (0.05MG) PO SCH (05:42)
[2019-02-12 05:48] VITALS: BP 117/56
[2019-02-12] MEDS: PRENATAL VITAMINS CHEWABLE TABLET PO SCH (07:39)
[2019-02-12] MEDS ORDERED: IBUP80TA PO (07:52)
[2019-02-12] MEDS ORDERED: ACET-683 PO (07:52)
== END 2019-02-12 11:50 | disposition home or self-care (01) | DRG 560 ==
LOC: M LDI 18:07 → M OBS 02-10 20:26
PROVIDERS: ADMIT Advanced Practice Midwife; ATTEND Advanced Practice Midwife
PROC: 3E033VJ Introduction of Other Hormone into Peripheral Vein, Percutaneous Approach (ICD-10-PCS; 2019-02-09)
PROC: 10E0XZZ Delivery of Products of Conception, External Approach (ICD-10-PCS; principal; 2019-02-10)
PROC: 0KQM0ZZ Repair Perineum Muscle, Open Approach (ICD-10-PCS; 2019-02-10)
DX: O48.0 Post-term pregnancy (principal); O76 Abnormality in fetal heart rate and rhythm complicating labor and delivery; Z37.0 Single live birth; Z3A.40 40 weeks gestation of pregnancy; O70.1 Second degree perineal laceration during delivery

== ENCOUNTER → 2019-04-03 | Outpatient (CLI) | payer OTHER ==
[~2019-04-03] MED LIST changes: +ACET-683 PO; +IBUP80TA PO; +LEVO50TA5 PO
[2019-04-03 14:08] LABS: FREE T4 0.95 NG/DL (0.76-1.46); THYROID STIMULATING HORMONE 1.15 uIU/ML (0.358-3.740)
== END ==
LOC: M PLALAB 10:17
PROVIDERS: ATTEND Advanced Practice Midwife
DX: E03.9 Hypothyroidism, unspecified (principal)

== ENCOUNTER → 2019-07-23 | Outpatient (REF) | payer OTHER ==
[2019-07-23 11:54] LABS: BASO % 0.9 % (0.0-1.0); EOS # 0.4 10^3/uL (0.0-0.5); EOS % 9.4 % (0.0-3.0); HEMATOCRIT 38.9 % (36.0-47.0); HEMOGLOBIN 12.4 g/dl (12.0-15.5); LYMPH # 1.5 10^3/uL (1.5-5.0); MEAN CORPUSCULAR HEMOGLOBIN 29.2 pg (27.0-33.0); MEAN CORPUSCULAR HGB CONC 31.9 g/dl (32.0-36.5); MEAN CORPUSCULAR VOLUME 91.5 fl (80.0-96.0); MONO # 0.3 10^3/uL (0.0-0.8); MONO % 5.8 % (0.0-5.0); NEUTROPHILS # 2.2 10^3/uL (1.5-8.5); NEUTROPHILS % 49.2 % (36.0-66.0); PLATELET COUNT, AUTOMATED 260 10^3/uL (150-450); RED BLOOD COUNT 4.25 10^6/uL (4.00-5.40); WHITE BLOOD COUNT 4.5 10^3/uL (4.0-10.0)
[2019-07-23 12:07] LABS: ALBUMIN 3.5 GM/DL (3.2-5.2); ALT/SGPT 24 U/L (12-78); BILIRUBIN,TOTAL 1.1 MG/DL (0.2-1.0); BLOOD UREA NITROGEN 12 MG/DL (7-18); CALCIUM LEVEL 8.6 MG/DL (8.5-10.1); CARBON DIOXIDE LEVEL 28 MEQ/L (21-32); CHLORIDE LEVEL 107 MEQ/L (98-107); CHOLESTEROL LEVEL 172 MG/DL (<200); CHOLESTEROL RISK RATIO 2.646 (<5); CREATININE FOR GFR 0.74 MG/DL (0.55-1.30); FREE T4 1.03 NG/DL (0.76-1.46); GLOMERULAR FILTRATION RATE > 60.0 (>60); GLUCOSE, FASTING 83 MG/DL (70-100); HDL CHOLESTEROL 65 MG/DL (>40); LDL CHOLESTEROL 101 MG/DL (<100); NON-HDL-C 107 MG/DL; POTASSIUM SERUM 4.2 MEQ/L (3.5-5.1); SODIUM LEVEL 139 MEQ/L (136-145); THYROID STIMULATING HORMONE 0.119 uIU/ML (0.358-3.740); TOTAL 25(OH) VITAMIN D 39.7 NG/ML (30.0-100.0); TOTAL PROTEIN 7.1 GM/DL (6.4-8.2); TRIGLYCERIDES LEVEL 30 MG/DL (<150)
== END ==
LOC: M SFHCLERA 08:41
PROVIDERS: ATTEND Physician Assistant
DX: E03.9 Hypothyroidism, unspecified (principal); R79.89 Other specified abnormal findings of blood chemistry; Z13.21 Encounter for screening for nutritional disorder; Z13.220 Encounter for screening for lipoid disorders

== ENCOUNTER → 2020-02-27 | Outpatient (CLI) | payer OTHER ==
[2020-02-27 11:53] LABS: BASO % 0.8 % (0.0-1.0); EOS # 0.2 10^3/uL (0.0-0.5); EOS % 4.2 % (0.0-3.0); HEMATOCRIT 41.2 % (36.0-47.0); HEMOGLOBIN 12.8 g/dl (12.0-15.5); LYMPH % 38.7 % (24.0-44.0); MEAN CORPUSCULAR HEMOGLOBIN 29.2 pg (27.0-33.0); MEAN CORPUSCULAR HGB CONC 31.1 g/dl (32.0-36.5); MEAN CORPUSCULAR VOLUME 93.8 fl (80.0-96.0); MONO # 0.4 10^3/uL (0.0-0.8); MONO % 7.3 % (0.0-5.0); NEUTROPHILS # 2.5 10^3/uL (1.5-8.5); NEUTROPHILS % 48.8 % (36.0-66.0); PLATELET COUNT, AUTOMATED 264 10^3/uL (150-450); RED BLOOD COUNT 4.39 10^6/uL (4.00-5.40); WHITE BLOOD COUNT 5.1 10^3/uL (4.0-10.0)
[2020-02-27 12:30] LABS: ALBUMIN 3.8 GM/DL (3.2-5.2); ALT/SGPT 25 U/L (12-78); BILIRUBIN,TOTAL 0.7 MG/DL (0.2-1.0); BLOOD UREA NITROGEN 12 MG/DL (7-18); CALCIUM LEVEL 9.3 MG/DL (8.5-10.1); CARBON DIOXIDE LEVEL 27 MEQ/L (21-32); CHLORIDE LEVEL 109 MEQ/L (98-107); CREATININE FOR GFR 0.86 MG/DL (0.55-1.30); GLOMERULAR FILTRATION RATE > 60.0 (>60); GLUCOSE, FASTING 92 MG/DL (70-100); POTASSIUM SERUM 4.2 MEQ/L (3.5-5.1); SODIUM LEVEL 142 MEQ/L (136-145); TOTAL PROTEIN 7.5 GM/DL (6.4-8.2)
== END ==
LOC: M WUC 10:09
PROVIDERS: ATTEND Physician Assistant Medical
DX: E03.9 Hypothyroidism, unspecified (principal); F10.10 Alcohol abuse, uncomplicated

== ENCOUNTER → 2020-09-09 | Outpatient (REF) | payer OTHER | LOC: M SFHCWAGY 10:28 | PROVIDERS: ATTEND Advanced Practice Midwife | DX: Z12.4 Encounter for screening for malignant neoplasm of cervix (principal); Z77.9 Other contact with and (suspected) exposures hazardous to health | CPT/HCPCS: 87624; G0123 ==

== ENCOUNTER → 2021-02-03 | Outpatient (CLI) | payer OTHER ==
[2021-02-03 20:23] LABS: FREE T4 1.02 NG/DL (0.76-1.46); THYROID STIMULATING HORMONE 1.98 uIU/ML (0.358-3.740)
== END ==
LOC: M WUC 15:47
PROVIDERS: ATTEND Physician Assistant Medical
DX: E03.9 Hypothyroidism, unspecified (principal)

== ENCOUNTER → 2021-02-18 | Outpatient (CLI) | payer OTHER ==
--- NOTE | 2021-02-18 22:01 | REPVR ---
PROCEDURE INFORMATION: Exam: MR Head Without Contrast Exam date and time: 02/18/2021 7:35 AM Age: 35 years old Clinical indication: Pain; Headache; Migraine; With aura; Other: N/a; Additional info: Migraine w/ aura TECHNIQUE: Imaging protocol: MR of the head without contrast. COMPARISON: No relevant prior studies available. FINDINGS: Brain: No intracranial hemorrhage or extra-axial fluid collection. No evidence of mass effect or midline shift. No white matter abnormalities. No restricted diffusion to suggest acute infarct. Cerebral ventricles: Ventricles, cisterns, and sulci are normal. Bones/joints: Unremarkable. Paranasal sinuses: Bilateral maxillary sinus retention cysts versus polyps. Mastoid air cells: No mastoid effusion. Orbital cavity: Unremarkable. Soft tissues: Unremarkable. IMPRESSION: No acute intracranial findings. Electronically signed by: Ernesto Paris On 02/18/2021 22:00:16 PM
== END ==
LOC: M RAD 06:49
PROVIDERS: ATTEND Physician Assistant Medical
DX: G43.109 Migraine with aura, not intractable, without status migrainosus (principal)

== ENCOUNTER → 2023-06-12 | Outpatient (REF) | payer OTHER ==
[~2023-06-12] MED LIST changes: +[UNRECOGNIZED DRUG - CODE]; -[UNRECOGNIZED DRUG - CODE]
== END ==
LOC: M SFHCWAGY 14:06
PROVIDERS: ATTEND Nurse Practitioner Family
DX: Z12.4 Encounter for screening for malignant neoplasm of cervix (principal)
CPT/HCPCS: 87624; G0123

== ENCOUNTER → 2023-08-02 | Outpatient (CLI) | payer OTHER ==
[~2023-08-02] MED LIST changes: +MINO1TAB; -[UNRECOGNIZED DRUG - CODE]
[2023-08-02 06:53] LABS: HEMATOCRIT 43.2 % (36.0-47.0); HEMOGLOBIN 14.2 g/dl (12.0-15.5); MEAN CORPUSCULAR HGB CONC 32.9 g/dl (32.0-36.5); MEAN CORPUSCULAR VOLUME 91.1 fl (80.0-96.0); PLATELET COUNT, AUTOMATED 264 10^3/uL (150-450); RED BLOOD COUNT 4.74 10^6/uL (4.00-5.40); WHITE BLOOD COUNT 5.7 10^3/uL (4.0-10.0)
[2023-08-02 07:08] LABS: HEMOGLOBIN A1c 5.2 % (4.0-6.0)
[2023-08-02 07:21] LABS: CORTISOL AM 26.2 UG/DL (4.3-22.4)
[2023-08-02 07:24] LABS: C REACTIVE PROTEIN QUANTITATIV < 0.40 MG/DL (<1.0)
[2023-08-02 07:25] LABS: THYROXINE (T4) 6.6 UG/DL (4.5-10.9)
[2023-08-02 07:26] LABS: ALBUMIN 3.4 G/DL (3.2-5.2); ALKALINE PHOSPHATASE 53 U/L (46-116); ALT/SGPT 19 U/L (7.0-40); AST/SGOT 23 U/L (<34); BILIRUBIN,TOTAL 0.8 MG/DL (0.3-1.2); BLOOD UREA NITROGEN 20 MG/DL (9-23); CALCIUM LEVEL 9.2 MG/DL (8.5-10.1); CARBON DIOXIDE LEVEL 26 MMOL/L (20-31); CHLORIDE LEVEL 108 MMOL/L (98-107); CHOLESTEROL LEVEL 148 MG/DL (<200); CHOLESTEROL RISK RATIO 2.78 (<5); CREATININE FOR GFR 0.84 MG/DL (0.55-1.30); FERRITIN 15.9 NG/ML (7.3-270.7); FOLLICLE STIMULATING HORMONE 7.9 mIU/ML; GLOMERULAR FILTRATION RATE > 60.0 (>60); GLUCOSE, FASTING 92 MG/DL (60-100); HDL CHOLESTEROL 53.2 MG/DL (>40); LDL CHOLESTEROL 81.4 MG/DL (<100); LUTEINIZING HORMONE 4.1 mIU/ML; NON-HDL-C 94.8 MG/DL; POTASSIUM SERUM 4.7 MMOL/L (3.5-5.1); SODIUM LEVEL 141 MMOL/L (136-145); TOTAL 25(OH) VITAMIN D 53.4 NG/ML (20.0-100.0); TOTAL PROTEIN 6.9 G/DL (5.7-8.2); TRIGLYCERIDES LEVEL 67 MG/DL (<150)
[2023-08-02 07:27] LABS: ESTRADIOL 45.8 PG/ML; TESTOSTERONE 33 NG/DL (14-76); THYROID STIMULATING HORMONE 2.261 uIU/ML (0.55-4.78)
[2023-08-02 07:31] LABS: FREE T3 3.6 PG/ML (2.3-4.2); THYROID PEROXIDASE ANTIBODY 41 U/ML (<60.0)
== END ==
LOC: M LAB 06:06
PROVIDERS: ATTEND Physician Assistant
DX: E27.40 Unspecified adrenocortical insufficiency (principal); R68.82 Decreased libido; Z13.29 Encounter for screening for other suspected endocrine disorder; R53.83 Other fatigue; R63.5 Abnormal weight gain; E55.9 Vitamin D deficiency, unspecified; R79.82 Elevated C-reactive protein (CRP); M25.50 Pain in unspecified joint; Z79.83 Long term (current) use of bisphosphonates; G47.9 Sleep disorder, unspecified; R53.1 Weakness

== ENCOUNTER → 2023-11-09 | Outpatient (CLI) | payer OTHER | LOC: M PLARAD 09:51 | PROVIDERS: ATTEND Physician Assistant Surgical | DX: M25.462 Effusion, left knee (principal); S83.002A Unspecified subluxation of left patella, initial encounter; Y92.9 Unspecified place or not applicable; Y93.9 Activity, unspecified ==

== ENCOUNTER → 2024-01-24 | Outpatient (REF) | payer OTHER ==
[2024-01-24 14:40] LABS: BASO # 0.1 10^3/uL (0.0-0.2); BASO % 0.8 % (0.0-1.0); EOS # 0.2 10^3/uL (0.0-0.5); EOS % 2.4 % (0.0-3.0); HEMATOCRIT 42.3 % (36.0-47.0); HEMOGLOBIN 13.7 g/dl (12.0-15.5); LYMPH # 1.7 10^3/uL (1.5-5.0); LYMPH % 27.5 % (24.0-44.0); MEAN CORPUSCULAR HEMOGLOBIN 30.6 pg (27.0-33.0); MEAN CORPUSCULAR HGB CONC 32.4 g/dl (32.0-36.5); MEAN CORPUSCULAR VOLUME 94.6 fl (80.0-96.0); MONO # 0.4 10^3/uL (0.0-0.8); MONO % 6.6 % (2.0-8.0); NEUTROPHILS % 62.5 % (36.0-66.0); PLATELET COUNT, AUTOMATED 283 10^3/uL (150-450); RED BLOOD COUNT 4.47 10^6/uL (4.00-5.40); WHITE BLOOD COUNT 6.3 10^3/uL (4.0-10.0)
[2024-01-24 14:46] LABS: HEMOGLOBIN A1c 5.4 % (4.0-6.0)
[2024-01-24 15:10] LABS: ALBUMIN 4.1 G/DL (3.2-5.2); ALKALINE PHOSPHATASE 72 U/L (46-116); ALT/SGPT 24 U/L (7.0-40); AST/SGOT 24 U/L (<34); BILIRUBIN,TOTAL 0.5 MG/DL (0.3-1.2); BLOOD UREA NITROGEN 18 MG/DL (9-23); CALCIUM LEVEL 10.1 MG/DL (8.5-10.1); CARBON DIOXIDE LEVEL 30 MMOL/L (20-31); CHLORIDE LEVEL 105 MMOL/L (98-107); CHOLESTEROL LEVEL 176 MG/DL (<200); CREATININE FOR GFR 0.79 MG/DL (0.55-1.30); GLOMERULAR FILTRATION RATE > 60.0 (>60); GLUCOSE, FASTING 73 MG/DL (60-100); HDL CHOLESTEROL 62.7 MG/DL (>40); LDL CHOLESTEROL 97.9 MG/DL (<100); NON-HDL-C 113.3 MG/DL; POTASSIUM SERUM 4.7 MMOL/L (3.5-5.1); SODIUM LEVEL 136 MMOL/L (136-145); TOTAL PROTEIN 7.5 G/DL (5.7-8.2); TRIGLYCERIDES LEVEL 77 MG/DL (<150)
[2024-01-24 15:12] LABS: THYROID STIMULATING HORMONE 1.116 uIU/ML (0.55-4.78)
== END ==
LOC: M LAB REF 14:00
PROVIDERS: ATTEND Nurse Practitioner Family
DX: E55.9 Vitamin D deficiency, unspecified (principal); E66.9 Obesity, unspecified

== ENCOUNTER → 2024-06-12 | Outpatient (CLI) | payer OTHER ==
[2024-06-12 15:13] LABS: FOLLICLE STIMULATING HORMONE 8.5 mIU/ML; FREE T4 0.96 NG/DL (0.89-1.76); LUTEINIZING HORMONE 4.6 mIU/ML; PROGESTERONE 0.4 NG/ML; PROLACTIN 3.51 NG/ML
[2024-06-12 15:14] LABS: ESTRADIOL 163.7 PG/ML; THYROID STIMULATING HORMONE 0.847 uIU/ML (0.55-4.78)
[2024-06-12 15:29] LABS: HEMOGLOBIN A1c 5.4 % (4.0-6.0)
[2024-06-21 16:12] LABS: TESTOSTERONE FREE (DIRECT) 1.8 pg/mL (0.1-6.4)
== END ==
LOC: M PLALAB 09:52
PROVIDERS: ATTEND Nurse Practitioner Family
DX: R23.2 Flushing (principal)